=== PATIENT | male | born 1945 | race Hispanic/Latino ===

== ENCOUNTER 2017-10-05 05:48 | Day surgery (SDC) | payer OTHER, SELFPAY ==
[2017-09-30 14:44] VITALS: BP 143/69
[2017-09-30 14:52] LABS: BASOPHILS % (AUTO) 0.7 % (0.0-5.0); EOSINOPHILS % (AUTO) 3.1 % (0.0-8.0); HEMATOCRIT 43.2 % (42-54); LYMPHOCYTES % (AUTO) 27.1 % (21.0-51.0); MEAN CORPUSCULAR HEMOGLOBIN 28.1 pg (27.0-33.0); MEAN CORPUSCULAR HGB CONC 33.1 g/dL (32.0-36.0); MEAN CORPUSCULAR VOLUME 84.8 fL (79-99); MONOCYTES % (AUTO) 8.8 % (3.0-13.0); NEUTROPHILS % (AUTO) 60.3 % (40.0-77.0); PLATELET COUNT (AUTO) 187 K/uL (130-400); RED BLOOD CELL COUNT(AUTO) 5.09 MIL/uL (4.50-6.20); RED CELL DISTRIBUTION WIDTH 14.3 % (11.0-15.5); WHITE BLOOD COUNT (AUTO) 9.6 K/uL (4.8-10.8)
[2017-10-05] VITALS (14 sets, daily range): BP systolic 116–140; BP diastolic 64–79
[~2017-10-05] VITALS: Ht 158.8 cm; Wt 95.3 kg
[2017-10-05] MEDS: CEFAZOLIN SODIUM 1 GM VIAL IVP SCH ×2 (06:00→07:42)
[2017-10-05] MEDS ORDERED: WATER FOR INJECTION,STERILE 20 ML VIAL ONE (06:53)
[2017-10-05] MEDS ORDERED: LACTATED RINGERS 1000ML 0 ML IV ONE (06:54)
[2017-10-05] MEDS ORDERED: SODIUM CHLORIDE 0.9% 1000ML 1,000 ML IV ONE (07:03)
[2017-10-05] MEDS ORDERED: LOSA25TA21 PO (07:11)
[2017-10-05] MEDS ORDERED: ASPI-555 PO (07:12)
[2017-10-05] MEDS ORDERED: LIDOCAINE PF 2% 5ML ABBOJECT ONE (07:16)
[2017-10-05] MEDS ORDERED: DEXAMETHASONE SOD PHOSPHATE 10MG/ML 1ML VIAL ONE (07:16)
[2017-10-05] MEDS ORDERED: ONDANSETRON HCL 4 MG/2 ML VIAL ONE (07:16)
[2017-10-05] MEDS ORDERED: FENTANYL CITRATE PF 50 MCG/1 ML 2ML VIAL ONE (07:17)
[2017-10-05] MEDS ORDERED: GLYCOPYRROLATE 0.2 MG/ML 5 ML VIAL ONE (07:17)
[2017-10-05] MEDS ORDERED: PROPOFOL 10 MG/ML 20ML VIAL IV ONE (07:17)
[2017-10-05] MEDS ORDERED: MIDAZOLAM HCL 1 MG/ML 2ML VIAL ONE (07:17)
[2017-10-05] MEDS ORDERED: NAPR220C15 PO (07:18)
[2017-10-05] MEDS ORDERED: ICOS1CAP PO (07:19)
[2017-10-05] MEDS ORDERED: CHOL200074 PO (07:20)
[2017-10-05] MEDS ORDERED: LIDOCAINE HCL MDV 0.5% 50ML VIAL IJ ONE (07:20)
== END 2017-10-05 10:05 | disposition home or self-care (01) ==
LOC: DAH 05:48
PROVIDERS: ATTEND Neurological Surgery
DX: G56.02 Carpal tunnel syndrome, left upper limb (principal); I10 Essential (primary) hypertension; E11.9 Type 2 diabetes mellitus without complications; Z98.890 Other specified postprocedural states
CPT/HCPCS: 36415; 64721; 82948 ×2; 85025; 93005; J0690; J1100; J2001; J2250; J2405; J2704; J3010; J3490 ×2; J7030; J7120

== ENCOUNTER → 2023-05-13 | Outpatient (CLI) | payer MEDICARE ==
[~2023-05-13] MED LIST: ASPI-556 PO; CHOL200074 PO; ICOS1CAP PO; LOSA25TA41 PO; NAPR220C15 PO
[2023-05-13 13:05] LABS: ALBUMIN 3.5 g/dL (3.5-5.0); BILIRUBIN,TOTAL 0.4 mg/dL (0.2-1.0); CREATININE 0.8 mg/dL (0.5-1.5); POTASSIUM 4.2 mmol/L (3.5-5.1); TOTAL PROTEIN, SERUM 7.3 g/dL (6.0-8.3)
== END | disposition home or self-care (01) ==
LOC: LAB 11:54
PROVIDERS: ATTEND Internal Medicine Cardiovascular Disease
DX: I25.10 Atherosclerotic heart disease of native coronary artery without angina pectoris (principal)
CPT/HCPCS: 36415; 80053

== ENCOUNTER → 2023-05-19 | Outpatient (CLI) | payer MEDICARE ==
[~2023-05-19] MED LIST changes: +IOHEXOL 350 MG/ML 100ML INFUS..BTL IV ONE; +IOHEXOL-350 50ML VIAL IV ONE
== END | disposition home or self-care (01) ==
LOC: RAH 10:03
PROVIDERS: ATTEND Internal Medicine Cardiovascular Disease
DX: M47.815 Spondylosis without myelopathy or radiculopathy, thoracolumbar region (principal); K76.0 Fatty (change of) liver, not elsewhere classified; I70.8 Atherosclerosis of other arteries; I73.9 Peripheral vascular disease, unspecified
CPT/HCPCS: 75635; Q9967 ×2